=== PATIENT | female | born 1955 | race Caucasian/White ===

== ENCOUNTER 2021-12-06 08:53 | Emergency (ER) | payer BC, MEDICARE ==
[2021-12-06 09:51] LABS: ANION GAP 11.4 meq/L (7-15); CHLORIDE,CL 103 mmol/L (98-107); SODIUM,NA 139 mmol/L (136-145)
[2021-12-06] MEDS: Acetaminophen 500 MG Tab PO ONE (12:06)
[2021-12-06] MEDS: Ondansetron 4 MG/2 ML SDV IVPUSH ONE (12:06)
[2021-12-06] MEDS: Sodium Chloride 0.9% 10 ML Syringe FLUSH PRN (12:07)
[2021-12-06 17:44] VITALS: BP 146/62; PULSE 64
== END 2021-12-06 13:40 | disposition home or self-care (01) ==
LOC: LL.ED 08:53
DX: K21.00 Gastro-esophageal reflux disease with esophagitis, without bleeding (principal); I10 Essential (primary) hypertension; J45.909 Unspecified asthma, uncomplicated; Z88.1 Allergy status to other antibiotic agents; Z88.8 Allergy status to other drugs, medicaments and biological substances; Z79.899 Other long term (current) drug therapy; Z79.82 Long term (current) use of aspirin
CPT/HCPCS: 36415; 80053; 84484; 85025; 85610; 93005; 93010; 96374; 99284; 99284-25; A9270-GY; J2405; J3490

== ENCOUNTER 2025-06-17 15:02 | Emergency (ER) | payer MEDICARE ==
[2025-06-17 15:33] LABS: BASOPHILS ABSOLUTE AUTO 0.03 K/uL (0.00-0.20); BASOPHILS PERCENT AUTO 0.6 % (0.0-2.0); EOSINOPHILS ABSOLUTE AUTO 0.33 K/uL (0.00-0.50); EOSINOPHILS PERCENT AUTO 6.5 % (0.0-5.0); IMMATURE GRAN ABSOLUTE AUTO 0.01 10^3/uL (0.00-0.04); IMMATURE GRAN PERCENT AUTO 0.2 % (0.0-0.4); LYMPHOCYTES ABSOLUTE AUTO 1.30 K/uL (0.50-3.50); LYMPHOCYTES PERCENT AUTO 25.6 % (10.0-50.0); MONOCYTES ABSOLUTE AUTO 0.30 K/uL (0.00-1.00); MONOCYTES PERCENT AUTO 5.9 % (2.0-14.0); NEUTROPHILS ABSOLUTE AUTO 3.11 K/uL (1.40-7.00); NEUTROPHILS PERCENT AUTO 61.2 % (45.0-80.0); PLATELET COUNT,PLT 182 K/uL (150-350); RED BLOOD CELL COUNT 3.44 M/uL (3.77-5.09); RED CELL DISTRIBUTION WIDTH 13.1 % (11.2-14.1); WHITE BLOOD CELL COUNT,WBC 5.1 K/uL (4.0-10.2)
[2025-06-17] MEDS: Ondansetron 4 MG Tab.DIS PO ONE (15:56)
[2025-06-17 16:00] LABS: ALANINE AMINOTRANSFERASE,ALT 24 U/L (12-78); ASPARTATE AMNIOTRANSFERASE,AST 12 U/L (15-37); BILIRUBIN TOTAL 0.4 mg/dL (0.2-1.0); BLOOD UREA NITROGEN,BUN 10 mg/dL (7-18); CARBON DIOXIDE,CO2 27.8 mmol/L (21.0-32.0); CHLORIDE,CL 106 mmol/L (98-107); CREATININE 1.07 mg/dL (0.51-1.17); GLUCOSE RANDOM 108 mg/dL (70-99); POTASSIUM,K 3.9 mmol/L (3.5-5.1); PRO B-TYPE NATRIUR PEPT,BNPPRO 123 pg/mL (0-125); PROTEIN TOTAL,TP 6.6 g/dL (6.4-8.2); SODIUM,NA 144 mmol/L (136-145)
[2025-06-17 16:01] LABS: ESTIMATED GFR 55 mL/min (>=60)
[2025-06-17] MEDS: Sodium Chloride 0.9% 10 ML Syringe FLUSH PRN (17:14)
[2025-06-17 17:46] VITALS: BP 149/93; PULSE 69
== END 2025-06-17 17:30 | disposition home or self-care (01) ==
LOC: LL.ED 15:02 → SUPCPDRO 15:02 → LL.ED 17:30
DX: M94.0 Chondrocostal junction syndrome [Tietze] (principal); R07.9 Chest pain, unspecified; I10 Essential (primary) hypertension; Z88.8 Allergy status to other drugs, medicaments and biological substances; Z88.2 Allergy status to sulfonamides; Z79.899 Other long term (current) drug therapy; Z79.82 Long term (current) use of aspirin
CPT/HCPCS: 36415; 71046; 80053; 83880; 84484; 85025; 93005; 93010; 99284; 99285; A9270-GY; J1642